=== PATIENT | female | born 1950 | race Caucasian/White ===

== ENCOUNTER → 2016-10-26 | Outpatient (CLI) | payer OTHER ==
--- NOTE | 2016-11-14 13:39 | RSPPFT ---
DATE OF PROCEDURE: 10/26/16 COMMENTS: VOLUMES DYNAMIC: FVC and FEV1 mildly reduced. STATIC: RV mildly increased; VTG and TLC normal. FLOWS: FEV1% normal; FEF 25-75 severely reduced. DIFFUSION: Normal. FLOW VOLUME LOOP: Terminal airflow obstruction. IMPRESSION: Mild obstructive ventilatory defect with no reduction in diffusion, mild hyperinflation and normal airways resistance. There is improvement post-bronchodilator.
== END ==
LOC: HRSP 10:32
PROVIDERS: ATTEND Internal Medicine
DX: J44.9 Chronic obstructive pulmonary disease, unspecified (principal)
CPT/HCPCS: 94060; 94620; 94726; 94729